=== PATIENT | male | born 1990 | race Caucasian/White ===

== ENCOUNTER 2019-02-01 02:33 | Emergency (ER) | payer OTHER ==
[~2019-02-01] VITALS: Ht 175.3 cm; Wt 90.0 kg
[~2019-02-01 02:33] MED LIST: BACITRACIN OINTMENT TOP; HALDOL PO; OMEP40CA2 PO; PROZ40CA PO; TRIL150T PO
[2019-02-01] MEDS ORDERED: BUPR1TAB53 PO (02:39)
[2019-02-01] MEDS ORDERED: LORazepam 2 MG/ML VIAL (J2060) IV STA (03:36)
[2019-02-01] MEDS ORDERED: MORPHINE 4 MG/ML 1ML VIAL/SYRINGE (J2270) IV ONE (03:45)
[2019-02-01] MEDS ORDERED: ONDANSETRON 4MG/2ML VIAL (J2405) IV ONE (03:45)
[2019-02-01 05:40] LABS: BASO % 0.5 % (0.0-1.0); EOS % 0.9 % (0.0-3.0); LYMPH # 1.6 10^3/uL (1.5-6.5); LYMPH % 36.8 % (24.0-44.0); MEAN CORPUSCULAR HEMOGLOBIN 31.4 pg (27.0-33.0); MEAN CORPUSCULAR VOLUME 89.7 fl (80.0-96.0); MONO # 0.4 10^3/uL (0.0-0.8); NEUTROPHILS # 2.2 10^3/uL (1.8-7.7); NEUTROPHILS % 51.3 % (36.0-66.0); PLATELET COUNT, AUTOMATED 232 10^3/uL (150-450); RED BLOOD COUNT 4.46 10^6/uL (4.30-6.10); WHITE BLOOD COUNT 4.3 10^3/uL (4.0-10.0)
[2019-02-01 06:04] LABS: BLOOD UREA NITROGEN 14 MG/DL (7-18); CALCIUM LEVEL 8.9 MG/DL (8.5-10.1); CARBON DIOXIDE LEVEL 26 MEQ/L (21-32); CHLORIDE LEVEL 105 MEQ/L (98-107); CREATININE FOR GFR 1.11 MG/DL (0.70-1.30); GLOMERULAR FILTRATION RATE > 60.0 (>60); GLUCOSE, FASTING 97 MG/DL (70-100); POTASSIUM SERUM 4.1 MEQ/L (3.5-5.1); SODIUM LEVEL 139 MEQ/L (136-145)
--- NOTE | 2019-02-01 06:14 | REPVR ---
EXAM: US Scrotum EXAM DATE/TIME: 02/01/2019 4:06 AM CLINICAL HISTORY: 28 years old, male; Pain; Groin pain; Additional info: Right hernia v hydrocele TECHNIQUE: Imaging protocol: Real-time ultrasound of the scrotum and contents with color Doppler and image documentation. COMPARISON: No relevant prior studies available. FINDINGS: Right Testicle: The right testicle is homogeneous in echogenicity and measures 4.9 x 2.7 x 3.2 cm. Blood flow is seen on color and pulsed Doppler. There is no significant hyperemia. Left Testicle: The left testicle is homogeneous in echogenicity and measures 4.7 x 2.2 x 3.2 cm. Blood flow is seen on color and pulsed Doppler. There is no significant hyperemia. Epididymides: The right epididymal head measures 5 mm in thickness. There is no hyperemia on color Doppler imaging. The left epididymal head measures 8 mm in thickness. There is no hyperemia on color Doppler imaging. Scrotum: There is no evidence of hydrocele or varicocele. Other findings: There is no evidence of a hernia at the left inguinal ring. There is expansion of the right inguinal ring with extension of fat into the inguinal canal only with the Valsalva maneuver. There is no sign of hernia at rest. There is no evidence of herniation of bowel. IMPRESSION: 1. Normal appearance of the testes and epididymides. 2. No evidence of hydrocele or varicocele. 3. Herniation of fat at the right inguinal ring with the Valsalva maneuver. Electronically signed by: Nevin Martínez On 02/01/2019 06:13:44 AM
[2019-02-01] MEDS: GASTROGRAFIN SOLUTION 30ML PO SCH ×2 (06:52→07:20)
[2019-02-01] MEDS ORDERED: ISOVUE-370 76% 125ML VIAL (Q9967 PER ML) As Ordered ONE (08:05)
--- NOTE | 2019-02-01 08:31 | REP ---
Clinical: Right inguinal pain/hernia. Technique: Axial contrast enhanced images from the lung bases to the pubic symphysis using oral (per protocol) and 100 ml Isovue 370 intravenous contrast material with coronal and sagittal re-formations. Comparison: None. Findings: Lung bases are clear. Visualized heart and pericardium normal. Liver, spleen, pancreas, gallbladder, bilateral adrenal glands and kidneys are normal. The enteric system is without obstruction or acute inflammatory process. Normal terminal ileum and appendix are identified in the right lower quadrant. Pelvis demonstrates normal bladder and age appropriate prostate/seminal vesicles. No ascites. No free air. No adenopathy. Abdominal aorta and vasculature without aneurysm or dissection. Very minimal amount of fat is identified bulging into the right inguinal canal suggesting the possibility of very subtle early fat containing inguinal hernia. Impression: 1. Possible early fat containing right inguinal hernia. 2. No further acute abdominopelvic pathology appreciated. Electronically Signed by John Styles MD 02/01/2019 08:23 A
[2019-02-01 08:56] VITALS: BP 141/62
== END 2019-02-01 08:58 | disposition home or self-care (01) ==
LOC: M ED 02:33
DX: K40.90 Unilateral inguinal hernia, without obstruction or gangrene, not specified as recurrent (principal); F34.9 Persistent mood [affective] disorder, unspecified; Z91.018 Allergy to other foods; Z79.899 Other long term (current) drug therapy
CPT/HCPCS: 74177; 76857; 76870; 80048; 85025; 93976; 96374; 96375; 99284; J2060; J2270; J2405; Q9963; Q9967